=== PATIENT | female | born 1970 | race African-American/Black ===

== ENCOUNTER 2023-02-09 17:45 | Emergency (ER) | payer BC, SELFPAY ==
--- NOTE | ~2023-02-09 | XR_ITS ---
EXAMINATION: XR foot LT min 3V, XR foot RT min 3V DATE: 02/09/2023 19:03 INDICATION: Bilateral foot pain post injury 8 days prior TECHNIQUE: 1. Dorsoplantar, two oblique and lateral views of the left foot were obtained. 2. Dorsoplantar, two oblique and lateral views of the right foot were obtained. COMPARISON: None. FINDINGS: Mild left and minimal right hallux valgus. Alignment is otherwise normal bilateral feet. Minimal disp lacement of a spiral fracture of the mid to distal left fifth metatarsal diaphysis. No other fracture s identified. 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 Tiny left and small right plantar calcaneal spurs. Soft tissues are unremarkable. IMPRESSION: Minimally displaced spiral fracture left fifth metatarsal diaphysis. No acute osseous abnormality at the right foot. Reviewed, dictated and finalized at location A. IMPRESSION: Minimally displaced spiral fracture left fifth metatarsal diaphysis. No acute o sseous abnormality at the right foot.
[2023-02-09 18:20] VITALS: BP 151/95; PULSE 76; RESP 16; TEMP 37.3; O2SAT 99
--- NOTE | 2023-02-09 18:26 | ED.LOWEXIN ---
HPI - Extremity Injury (Lower) General Chief Complaint: Extremity Injury, Lower Stated Complaint: left foot injury Time Seen by Provider: 02/09/23 18:26 Source: patient Mode of arrival: ambulatory Limitations: no limitations History of Present Illness HPI Narrative: 52-year-old female presents with complaint of pain to lateral aspect of left foot, pain to right little toe. Reports approximately 8 days ago she was standing on a step stool and it collapsed causing her to fall hard onto feet. Reports that she has taken [id number] medication for pain, ice and elevated and continues to have pain. All systems reviewed and negative except as noted above. Related Data Home Medications Medication Instructions Recorded Confirmed No Home Medications 02/09/23 02/09/23 Allergies Allergy/AdvReac Type Severity Reaction Status Date / Time No Known Allergies Allergy Verified 02/09/23 18:03 Review of Systems Review of Systems: CONSTITUTIONAL: Denies fever, chills, or sweats. EYES: Denies visual changes, redness, or discharge. ENT: Denies rhinorrhea, congestion, sore throat, or otalgia. CARDIOVASCULAR: Denies chest pain, palpitations, or edema. RESPIRATORY: Denies cough or dyspnea. GASTROINTESTINAL: Denies abdominal pain, nausea, vomiting, or diarrhea. GENITOURINARY: Denies dysuria or hematuria. SKIN: Denies rash or itching. MUSCULOSKELETAL: Denies back pain, joint pain, or myalgia. Reports pain to left foot, right little toe. NEUROLOGIC: Denies headache, numbness, or weakness. PSYCHIATRIC: Denies anxiety or depression. All other systems reviewed are negative, except as documented in HPI. PMFSH Comments At time of signature, agree with nursing past medical, surgical, social and family history. There is no relevant family history pertinent to the presenting complaint. At time of signature, agree with nursing past medical, surgical, social and family history. There is no relevant family history pertinent to the presenting complaint. Exam Narrative: GENERAL: This is a well-nourished, well-developed patient, in no apparent distress. HEAD: normocephalic, atraumatic. EYES: PERRL. Sclera clear/white. Vision is grossly intact. EARS: External ears normal NOSE: External nose normal NECK: Neck supple, non-tender without lymphadenopathy, masses or thyromegaly. CARDIOVASCULAR: Regular rate and rhythm without murmurs, gallops, or rubs. RESPIRATORY: Clear to auscultation. Breath sounds equal bilaterally. No wheezes, rales, or rhonchi. SKIN: warm, Dry, intact with no suspicious lesions or rash, good texture and turgor. NEURO: awake, alert, and oriented to person, place and time. There were no obvious focal neurologic abnormalities. EXTREMITIES: No joint tenderness, effusion, or edema noted. tenderness to distal aspect left 5th metatarsal. Bruising noted. Mild swelling. Tenderness to proximal aspect of right little toe without swelling. Course Course Level of Care: Express Care Visit Vital Signs Vital signs: Vital Signs Temperature 37.3 C 02/09/23 18:20 Pulse Rate 76 02/09/23 18:20 Respiratory Rate 16 02/09/23 18:20 Blood Pressure 151/95 H 02/09/23 18:20 Pulse Oximetry 99 02/09/23 18:20 Oxygen Delivery Room Air 02/09/23 18:20 Temperature 37.3 C 02/09/23 18:20 Pulse Rate 76 02/09/23 18:20 Respiratory Rate 16 02/09/23 18:20 Blood Pressure 151/95 H 02/09/23 18:20 Pulse Oximetry 99 02/09/23 18:20 Oxygen Delivery Room Air 02/09/23 18:20 Reviewed MDM - Extremity Injury (Lower) MDM Narrative Medical decision making narrative: Patient is aware of diagnosis, understands and agrees to treatment plan. Anticipatory guidance given. Patient agrees to follow-up as directed and is aware of reasons to seek care at the emergency department. Portions of this record may have been created with voice recognition software postop shoe placed to left foot. Patient given f
== END 2023-02-09 19:53 | disposition home or self-care (01) ==
PROVIDERS: Emergency Provider Nurse Practitioner Family
DX: S92.352A Displaced fracture of fifth metatarsal bone, left foot, initial encounter for closed fracture (principal); W17.89XA Other fall from one level to another, initial encounter
CPT/HCPCS: 73630; 99204; G0463